=== PATIENT | female | born 1985 | race Caucasian/White ===

== ENCOUNTER 2016-09-22 12:46 | Inpatient (IN) | payer OTHER ==
[2016-09-21] MEDS: BUTORPHANOL 2 MG INJ IV PRN (13:55)
[~2016-09-22] VITALS: Ht 167.6 cm; Wt 94.0 kg
[~2016-09-22 12:46] MED LIST: PREN-39 PO
[2016-09-22 12:59] VITALS: BP 122/80; PULSE 80; RESP 20; Ht 167.6 cm; Wt 94.0 kg
[2016-09-22] MEDS ORDERED: LACTATED RINGER'S 1,000 ML IV SCH (13:06)
--- NOTE | 2016-09-22 13:20 | TRIAGE ---
OB Triage Datetime Report Generated by CPN: 09/22/2016 13:20 Datetime: 09/22/2016 12:57 Time of Arrival: 09/22/2016 12:50 EGA: 39.1 Arrived By: Wheelchair Arrived From: Home Chief Complaint: UCS SINCE 699 Movement: Present Contractions: Regular Time Contractions Began: 09/22/2016 07:00 Contractions: Q 5 AT HOME Patient Complaints: Contractions Provider Notified: DR BOUDREAUX Initial Plan: EFM,CALL DR BOUDREAUX Datetime: 09/22/2016 12:55 Maternal Assessment Level of Consciousness: Fully Conscious DTR's/Clonus: DTRs 2+; No Clonus Headache: Denies Blurred Vision: No Respiratory Effort: Unlabored; Regular Rhythm; Equal Expansion Breath Sounds, Left: Clear and Equal Breath Sounds, Right: Clear and Equal Nausea/Vomiting: Denies RUQ Epigastric Pain: Denies Facial Edema: None Temperature Route: Axillary Fall Risk Assessment History of Falling: (0) No Secondary Diagnosis: (0) No Ambulatory Aid: (0) Bedrest/Nurse Assist IV Therapy: (0) No Gait: (0) Normal/Bedrest/Immobile Mental Status: (0) Oriented to Own Ability Fall Score: 0 Fall Risk Score Definition: No Risk: No action required
[2016-09-22] MEDS ORDERED: OXYTOCIN 30 UNITS/LR 500 ML IV PRN ×3 (13:30→17:30)
[2016-09-22] MEDS ORDERED: IBUPROFEN 600 MG TAB PO PRN (13:30)
[2016-09-22] MEDS ORDERED: CARBOPROST 250 MCG INJ IM PRN ×3 (13:30→17:30)
[2016-09-22] MEDS ORDERED: LIDOCAINE 1% (MPF) 30 ML INJ INJ PRN (13:30)
[2016-09-22] MEDS ORDERED: METHYLERGONOVINE 0.2 MG INJ IM PRN ×3 (13:30→17:30)
[2016-09-22] MEDS ORDERED: BUTORPHANOL 2 MG INJ IV PRN (13:30)
[2016-09-22] MEDS ORDERED: AMPICILLIN 2 GM/NS (PMX) 100 ML IV ONE (13:30)
[2016-09-22] MEDS ORDERED: OXYTOCIN 30 UNITS/LR 500 ML IV SCH ×2 (13:30)
[2016-09-22] MEDS ORDERED: MISOPROSTOL 200 MCG TAB PR PRN ×3 (13:30→17:30)
[2016-09-22] MEDS ORDERED: LACTATED RINGER'S 1,000 ML IV PRN (14:00)
[2016-09-22] MEDS: BUTORPHANOL 2 MG INJ IV PRN ×3 (14:10→14:19)
[2016-09-22 14:17] LABS: EOSINOPHILS % 0.1 % (0.0-7.0); HEMATOCRIT 37.6 % (37.0-47.0); HEMOGLOBIN 12.9 g/dl (12.0-16.0); LYMPHOCYTES # 0.9 10^3/ul (0.8-2.9); LYMPHOCYTES % 8.4 % (15.0-51.0); MEAN CORPUSCULAR HEMOGLOBIN 31.7 pg (29.0-33.0); MEAN CORPUSCULAR HGB CONC 34.2 g/dl (32.0-37.0); MEAN CORPUSCULAR VOLUME 92.5 fl (82.0-101.0); MONOCYTE # 0.5 10^3/ul (0.3-0.9); MONOCYTES % 4.8 % (0.0-11.0); NEUTROPHILS % 86.7 % (39.0-77.0); PLATELET COUNT 199 10^3/UL (140-440); RED BLOOD COUNT 4.06 10^6/ul (4.20-5.40); RED CELL DISTRIBUTION WIDTH 13.8 % (11.5-14.5); UNCORRECTED WBC 10.4 10^3/ul (4.8-10.8); WHITE BLOOD COUNT 10.4 10^3/ul (4.8-10.8)
[2016-09-22 14:19] LABS: CONDITION 1
[2016-09-22 14:27] LABS: INR 1.07; PROTIME 13.9 Sec (12.2-14.2); PT RATIO 1.1
[2016-09-22 14:38] LABS: PARTIAL THROMBOPLASTIN TIME 26.9 Sec (25.0-35.0)
[2016-09-22] MEDS ORDERED: AMPICILLIN 1 GM/NS (PMX) 50 ML IVPB SCH (17:00)
--- NOTE | 2016-09-22 17:03 | LDN ---
Date/Time of Note Date/Time of Note DATE: 09/22/16 TIME: 16:59 Delivery Summary Pt pushed without anesthesia to an of a liveborn male infant weighing 4105g with Apgars of 9 and 9 at 1 and 5 min respectively. Easy delivery of the head followed by the anterior and posterior shoulders and the remainder of the body. The was vigorous and placed on mother's abdomen and bulb suctioned. Cord clamping was delayed. The pt received standard IV Pitocin. The cord was doubly clamped and cut. An intact 3VC placenta delivered spontaneously. Fundus was noted to be firm. Inspection of the vagina and perineum revealed a L labial laceration which was repaired with 3-0 Chromic suture after local anesthesia was administered. and mother recovering well in LDR. EBL 250ml. Placenta Delivered: Spontaneously Meconium: Light Perineum intact?: Yes Anesthesia type: Local Estimated blood loss: 250 Sponge & Needle done & correct: Yes All needle counts correct: Yes Any foreign bodies felt in the: No Problems: Infant Delivery Information Sex Infant Sex: male Apgars 1 Minute: 9 5 Minute: 9 Suctioning Nose & mouth suctioned at john: No Delee suction performed: No Umbilical Cord Umbilical cord with: 3 Vessels Cord presentations: no nuchal cord Cord Blood was obtained: Yes Mother & Baby Disposition Disposition Mom & Baby to Maternity; Good: Yes Baby to NICU: No GERARD GUAJARDO MD Sep 22, 2016 17:03
[2016-09-22] MEDS ORDERED: LACTATED RINGER'S 1,000 ML IV* SCH (17:05)
[2016-09-22] MEDS ORDERED: LANOLIN 7 GM TUBE TOP PRN ×2 (17:30)
[2016-09-22] MEDS ORDERED: ACETAMINOPHEN 325 MG TAB PO PRN ×2 (17:30)
[2016-09-22] MEDS ORDERED: SENNA/DOCUSATE NA (8.6MG/50MG) TAB PO PRN (17:30)
[2016-09-22] MEDS ORDERED: DIBUCAINE 1% 30 GM OINT PR PRN ×2 (17:30)
[2016-09-22] MEDS ORDERED: ONDANSETRON 4 MG INJ IV PRN ×2 (17:30)
[2016-09-22] MEDS ORDERED: AMPICILLIN 1 GM/NS (PMX) 50 ML IV SCH (17:30)
[2016-09-22] MEDS ORDERED: DIPHENHYDRAMINE 50 MG INJ IV PRN ×2 (17:30)
[2016-09-22] MEDS ORDERED: BENZOCAINE 20% 56 ML SPRAY TOP PRN ×2 (17:30)
[2016-09-22] MEDS ORDERED: IBUPROFEN 600 MG TAB PO SCH (18:00)
[2016-09-22 18:18] VITALS: BP 135/83; RESP 18
--- NOTE | 2016-09-22 18:38 | OPRPT ---
Intraop Record Datetime Report Generated by CPN: 09/22/2016 18:38 Datetime: 09/22/2016 12:56 Food Allergies/Reactions: NONE Latex Allergies/Reactions: No Latex Allergies Datetime: 08/31/2016 10:56 Drug Allergies/Reactions: No Known Drug Allergy (12/22/2012)
--- NOTE | 2016-09-22 18:38 | DELSUM ---
Delivery Summary A-C Datetime Report Generated by CPN: 09/22/2016 18:38 DELIVERY PERSONNEL Crab Backer: Margarita Thomas MATERNAL INFORMATION Delivery Anesthesia: None Medications in Delivery: pitocin 30 units in lr Estimated Blood Loss (ml): 200 Placenta Cultured: No Maternal Complications: None LABOR SUMMARY EDC: 09/28/2016 00:00 No. Babies in Womb: 1 Attempted: No Labor Anesthesia: None LABOR INFORMATION Reason for Induction: Not Applicable Onset of Labor: 09/22/2016 07:00 Complete Dilatation: 09/22/2016 16:25 Oxytocin: Augmentation Group B Beta Strep: Done, Result Unknown Antibiotics # of Doses: ampicillin Antibiotics Time of Last Dose: 1355 Steroids Given: None Reason Steroids Not Administered: Not Applicable MEMBRANES Membranes Rupture Method: Artificial Rupture of Membranes: 09/22/2016 13:30 Length of Rupture (hr): 3.02 Amniotic Fluid Color: Clear Amniotic Fluid Amount: Moderate Amniotic Fluid Odor: Normal STAGES OF LABOR Stage 1 hr: 9 Stage 1 min: 25 Stage 2 hr: 0 Stage 2 min: 6 Stage 3 hr: 0 Stage 3 min: 5 Total Time in Labor hr: 9 Total Time in Labor min: 36 VAGINAL DELIVERY Episiotomy: None Laceration Extension: First Degree Other Laceration: LT LABIAL Laceration Repair: Yes Initial Vag Sponge Count: 20 Final Vag Sponge Count: 20 Initial Vag Sharps Count: 1 Final Vag Sharps Count: 2 Sponge Count Correct: Yes Sharps Count Correct: Yes BABY A INFORMATION Infant Delivery Date/Time: 09/22/2016 16:31 Method of Delivery: Vaginal Born in Route : No : N/A SHOULDER DYSTOCIA BABY A Infant Delivery Date/Time: 09/22/2016 16:31 PRESENTATION/POSITION BABY A Presentation: Cephalic Cephalic Presentation: Vertex Vertex Position: Left Occipital Anterior PLACENTA INFORMATION BABY A Placenta Delivery Time : 09/22/2016 16:36 Placenta Method of Delivery: Spontaneous Placenta Method of Delivery: Spontaneous Placenta Status: Delivered SCORES BABY A Heart Rate 1 min: >100 bpm Resp Effort 1 min: Good Cry Reflex Irritability 1 min: Cough/Sneeze/Pulls Away Muscle Tone 1 min: Active Motion Color 1 min: Body [place], Extremit Blue SCORE 1 MIN: 9 Heart Rate 5 min: >100 bpm Resp Effort 5 min: Good Cry Reflex Irritability 5 min: Cough/Sneeze/Pulls Away Muscle Tone 5 min: Active Motion Color 5 min: Body [place], Extremit Blue SCORE 5 MIN: 9 INFANT INFORMATION BABY A Gestational Age at Delivery: 39.1 Gestational Status: Full Term- 39- 40.6 Weeks Outcome : Liveborn Infant Condition : Stable Infant Sex: Male Sex: Male IDENTIFICATION/MEDS BABY A ID Band Number: [id number] ID Band Location: Right Leg; Left Arm Sensor Applied: Yes Sensor Number: [id number] Sensor Location : Cord Clamp Vitamin K Given : Not Given Erythromycin Given: Not Given WEIGHT/LENGTH BABY A Birthweight (gm): 4105 Infant Weight (lb): 9 Infant Weight (oz): 1 Length (in): 21.00 Infant Length (cm): 53.34 CORD INFORMATION BABY A No. Cord Vessels: 3 Nuchal Cord : N/A Cord Blood Taken: Yes Suction: Mouth; Nose ASSESSMENT BABY A Infant Complications: None Physical Findings at Delivery: Within Normal Limits Infant Respirations: Appears Normal Cardiac Rn/ALS Called : Yes Care By: MARION AGUILA Transferred To: Remains with Mother
[2016-09-22 18:45] VITALS: BP 130/80; PULSE 82; RESP 18
[2016-09-22] MEDS: IBUPROFEN 600 MG TAB PO SCH (18:47)
[2016-09-22 20:00] VITALS: BP 116/81; PULSE 74; RESP 18
[2016-09-22] MEDS: LACTATED RINGER'S 1,000 ML IV* SCH (21:12)
[2016-09-22] MEDS: SENNA/DOCUSATE NA (8.6MG/50MG) TAB PO PRN (21:12)
[2016-09-23] VITALS: BP 121/69; PULSE 70; RESP 18
[2016-09-23] MEDS: IBUPROFEN 600 MG TAB PO SCH ×5 (00:11→23:53)
[2016-09-23] MEDS: LACTATED RINGER'S 1,000 ML IV* SCH (01:07)
[2016-09-23 04:11] VITALS: BP 107/64; PULSE 75; RESP 18
[2016-09-23 08:28] LABS: BASOPHILS % 0.1 % (0.0-2.0); EOSINOPHILS % 0.1 % (0.0-7.0); HEMATOCRIT 31.2 % (37.0-47.0); HEMOGLOBIN 10.7 g/dl (12.0-16.0); LYMPHOCYTES # 1.2 10^3/ul (0.8-2.9); LYMPHOCYTES % 10.1 % (15.0-51.0); MEAN CORPUSCULAR HEMOGLOBIN 32.3 pg (29.0-33.0); MEAN CORPUSCULAR HGB CONC 34.4 g/dl (32.0-37.0); MEAN CORPUSCULAR VOLUME 93.7 fl (82.0-101.0); MEAN PLATELET VOLUME 9.3 fl (7.4-10.4); MONOCYTE # 0.8 10^3/ul (0.3-0.9); MONOCYTES % 7.1 % (0.0-11.0); NEUTROPHIL # 9.5 10^3/ul (1.6-7.5); NEUTROPHILS % 82.6 % (39.0-77.0); PLATELET COUNT 159 10^3/UL (140-440); RED BLOOD COUNT 3.33 10^6/ul (4.20-5.40); RED CELL DISTRIBUTION WIDTH 14.3 % (11.5-14.5); UNCORRECTED WBC 11.5 10^3/ul (4.8-10.8); WHITE BLOOD COUNT 11.5 10^3/ul (4.8-10.8)
[2016-09-23 08:35] VITALS: BP 110/71; PULSE 78; RESP 14
[2016-09-23 08:41] LABS: CONDITION 1
[2016-09-23] MEDS: SENNA/DOCUSATE NA (8.6MG/50MG) TAB PO PRN (10:51)
--- NOTE | 2016-09-23 13:09 | PN ---
Date/Time of Note Date/Time of Note DATE: 09/23/16 TIME: 13:09 OB Subjective Subjective Subjective PPD#1 is stable afebrile tolerated diet No VB +BM +Voids No sign of depression VS stable Gen NAD Abd soft NT ND Genitalia No blood at perinium --->Discharge plan tomorrow --->Ambulation SATINDER FERRIS M.D. Sep 23, 2016 13:09
[2016-09-23 16:03] VITALS: BP 127/83; PULSE 72; RESP 14
[2016-09-23 19:50] VITALS: BP 123/60; PULSE 66
[2016-09-24 04:13] VITALS: BP 124/76; PULSE 66; RESP 19
[2016-09-24] MEDS: IBUPROFEN 600 MG TAB PO SCH ×2 (05:34→12:35)
[2016-09-24 07:40] VITALS: BP 129/75; PULSE 72; RESP 18
--- NOTE | 2016-09-24 08:10 | DS ---
Date/Time of Note Date/Time of Note DATE: 09/24/16 TIME: 08:10 Discharge Summary Admission/Discharge Info Admit Date/Time Sep 22, 2016 at 13:10 Discharge Date/Time Final Diagnosis term preg Hospital Course unremarkable Home Meds Reported Medications Vits W-Ca,Fe,Fa(<1MG) ( Vitamins) 1 Tab Tablet, 1 TAB PO DAILY 12/22/12 CINDY BOUDREAUX MD Sep 24, 2016 08:10
[2016-09-24] MEDS ORDERED: DIPHTH/TET/ACEL PERTUSS (ADULT) 0.5 ML VIAL IM* ONE ×2 (09:00)
[2016-09-25 12:41] LABS: RUBELLA ANTIBODY - IGG 2.87
== END 2016-09-24 15:30 | disposition home or self-care (01) | DRG 775 ==
LOC: OBT 12:46 → L-D 12:46 → OBT 13:10 → L-D 13:10 → PP1 18:20
PROVIDERS: ADMIT Obstetrics & Gynecology; ATTEND Obstetrics & Gynecology
PROC: 10E0XZZ Delivery of Products of Conception, External Approach (ICD-10-PCS; principal; 2016-09-22)
PROC: 0UQMXZZ Repair Vulva, External Approach (ICD-10-PCS; 2016-09-22)
DX: O70.0 First degree perineal laceration during delivery (principal); Z37.0 Single live birth; Z3A.39 39 weeks gestation of pregnancy
CPT/HCPCS: 85025; 85610; 85730; 86592; 86762; 86900; 86901; 87340; 90715; G0463; J0290; J2590; J7120